=== PATIENT | female | born 1985 | race African-American/Black ===

== ENCOUNTER 2018-03-19 16:27 | Emergency (ER) | payer MEDICAID ==
[~2018-03-19] VITALS: Ht 154.9 cm; Wt 59.0 kg
[2018-03-19 16:53] VITALS: BP 118/76
--- NOTE | 2018-03-19 18:19 | Diagnostic Imaging Report ---
Indication: Pain Technique: XRAY Knee 3v R Comparison: None Findings: No evidence of acute fracture or dislocation. Alignment and joint spaces are preserved. No focal soft tissue abnormality is appreciated. No radiopaque foreign body seen. Impression: No evidence of acute fracture or dislocation.
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
[2018-03-19] MEDS ORDERED: IBUPROFEN600 MG ORAL (18:37)
[2018-03-19] MEDS ORDERED: LIDODERM700 M1 TOPIC (18:37)
[2018-03-19] MEDS ORDERED: ROBAXIN500 MG PO (18:37)
[2018-03-19 18:57] VITALS: BP 118/74
== END 2018-03-19 18:58 | disposition home or self-care (01) ==
LOC: EMR 17:02
DX: S80.01XA Contusion of right knee, initial encounter (principal); S16.1XXA Strain of muscle, fascia and tendon at neck level, initial encounter; M62.830 Muscle spasm of back; M54.5 Low back pain
CPT/HCPCS: 99283